=== PATIENT | male | born 1985 | race Caucasian/White ===

== ENCOUNTER 2020-04-26 21:03 | Emergency (ER) | payer OTHER, SELFPAY ==
[2020-04-26 21:27] VITALS: BP 138/81; PULSE 120; RESP 16; TEMP 36.6; O2SAT 98; BMI 24.0
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
[2020-04-26] MEDS: Lidocaine HCl 2 % MPF 5 ML VIAL INFILTRATI (22:33)
== END 2020-04-26 23:35 | disposition home or self-care (01) ==
PROVIDERS: Emergency Provider Internal Medicine; PCP Internal Medicine
DX: S01.511A Laceration without foreign body of lip, initial encounter (principal); W50.0XXA Accidental hit or strike by another person, initial encounter; Y93.9 Activity, unspecified; Y92.9 Unspecified place or not applicable; Y99.9 Unspecified external cause status
CPT/HCPCS: 12052; 99284

== ENCOUNTER 2020-10-30 18:50 | Emergency (ER) | payer OTHER, SELFPAY ==
[2020-10-30 19:09] VITALS: BP 170/96; PULSE 112; O2SAT 98
[2020-10-30 19:14] VITALS: BP 147/81; PULSE 94; RESP 20; TEMP 36.7; O2SAT 95; BMI 23.1
== END 2020-10-30 22:15 | disposition left against medical advice (07) ==
PROVIDERS: Emergency Provider Emergency Medicine
DX: F41.9 Anxiety disorder, unspecified (principal)
CPT/HCPCS: 99281; 99282

== ENCOUNTER 2020-12-24 14:46 | Outpatient (REF) | payer OTHER, SELFPAY | END 2020-12-24 14:47 | disposition home or self-care (01) | LOC: HO.LAB 14:46 | PROVIDERS: PCP Internal Medicine; Visit Provider Internal Medicine | DX: Z20.822 Contact with and (suspected) exposure to COVID-19 (principal) | CPT/HCPCS: C9803; U0003; U0005 ==

== ENCOUNTER 2021-08-20 12:03 | Emergency (ER) | payer OTHER, SELFPAY ==
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
[2021-08-20 14:03] VITALS: BP 142/92; PULSE 70; RESP 18; TEMP 36.4; O2SAT 100; BMI 24.0
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
[2021-08-20 15:32] VITALS: BP 141/85; PULSE 62; RESP 16; TEMP 36.9; O2SAT 98
--- NOTE | 2021-08-20 15:39 | PC.NURSE ---
PATIENT REFUSED BLOOD WORK ,RN AWARE .
[2021-08-20] MEDS: Acetaminophen 325 MG TABLET 975 MG PO (15:50)
[2021-08-20] MEDS: ALPRAZolam 0.5 MG TABLET PO (15:50)
[2021-08-20 16:08] LABS: MANUAL DIFF FLAG NO
[2021-08-20 16:15] LABS: Basophils Percent Auto 0.3 % (0-2); Eosinophils Absolute Auto 0.1 X10*3/uL (0.0-0.4); Eosinophils Percent Auto 1.2 % (0-4); Hematocrit 47.7 % (42.0-52.0); Hemoglobin 15.4 g/dl (14.0-18.0); Imm Gran Abs Auto 0.02 X10*3/uL (0.00-0.03); Imm Gran Pct Auto 0.2 % (0.0-0.4); Lymphocytes Absolute Auto 1.5 X10*3/uL (1.2-4.9); Lymphocytes Percent Auto 14.4 % (20-40); Mean Corpuscular HGB Conc 32.3 g/dl (31.0-36.0); Mean Corpuscular Hemoglobin 27.4 pg (27.0-33.0); Mean Corpuscular Volume 84.7 fL (80.0-98.0); Mean Platelet Volume 11.7 fL (9.4-12.4); Monocytes Percent Auto 9.6 % (2-11); Neutrophils Absolute Auto 7.9 x10*3/uL (2.0-8.3); Neutrophils Percent Auto 74.3 % (45-73); Platelet Count 161 X10*3/uL (160-400); Red Blood Count 5.63 X10*6/uL (4.60-5.80); Red Cell Distribution Width 13.6 % (11.0-16.0); White Blood Count 10.7 X10*3/uL (4.8-10.8)
[2021-08-20 16:20] LABS: INTERNATIONAL NORM RATIO 0.9 (0.9-1.1); Prothrombin Time 10.5 SEC (9.9-13.0)
[2021-08-20 16:23] LABS: Partial Thromboplastin Time 35.9 SEC (24.1-38.0)
[2021-08-20 16:28] LABS: Alanine Aminotransferase 21 U/L (0-40); Albumin Level 4.6 g/dL (3.5-5.0); Alkaline Phosphatase 94 U/L (39-117); Anion Gap 14 (12-20); Aspartate Amino Transferase 18 U/L (5-37); Bilirubin Direct 0.3 mg/dL (0.0-0.5); Bilirubin Total 0.9 mg/dL (0.0-1.0); Blood Urea Nitrogen 9 mg/dL (9-16); Calcium 9.9 mg/dL (8.4-10.2); Carbon Dioxide 25 mmol/L (22-29); Chloride 106 mmol/L (96-108); Creatinine Clr Calc Pharmacy 102.5; Estimated Glomerular Filt Rate > 60; Glucose Random 90 mg/dL (60-115); Potassium 4.7 mmol/L (3.3-5.1); Sodium 140 mmol/L (135-145); Total Protein 7.8 g/dL (6.5-8.0)
[2021-08-20] MEDS: iohexoL 350 MG/ML 100 ML INFUS..BTL IV (17:08)
[2021-08-20 18:00] VITALS: BP 134/92; PULSE 69; RESP 16; TEMP 37.1; O2SAT 98
== END 2021-08-20 18:51 | disposition home or self-care (01) ==
PROVIDERS: Physician Assistant; Emergency Provider Emergency Medicine; PCP Internal Medicine
DX: S43.401A Unspecified sprain of right shoulder joint, initial encounter (principal); S20.02XA Contusion of left breast, initial encounter; S20.01XA Contusion of right breast, initial encounter; V43.62XA Car passenger injured in collision with other type car in traffic accident, initial encounter; Y93.9 Activity, unspecified; Y92.410 Unspecified street and highway as the place of occurrence of the external cause; Y99.9 Unspecified external cause status; R10.30 Lower abdominal pain, unspecified; M54.2 Cervicalgia; G44.309 Post-traumatic headache, unspecified, not intractable; F17.210 Nicotine dependence, cigarettes, uncomplicated; Z71.6 Tobacco abuse counseling; Z79.899 Other long term (current) drug therapy
CPT/HCPCS: 36415; 36556; 70450; 71045; 71260; 72125; 73030; 74177; 80048; 80076; 85025; 85610; 85730; 99284; Q9967

== ENCOUNTER → 2021-09-12 14:23 | Outpatient (BNVA) | payer OTHER, SELFPAY | PROVIDERS: PCP Internal Medicine; Visit Provider Physician Assistant | DX: S40.011A Contusion of right shoulder, initial encounter (principal) | CPT/HCPCS: 99202 ==

== ENCOUNTER 2022-09-26 05:47 | Emergency (ER) | payer OTHER, SELFPAY ==
[2022-09-26 06:05] VITALS: BP 120/78; PULSE 119; RESP 20; TEMP 37; O2SAT 100; BMI 24.0
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
--- NOTE | 2022-09-26 07:40 | PC.NURSE ---
pt not found at bedside at this time
== END 2022-09-26 07:40 | disposition left against medical advice (07) ==
PROVIDERS: Emergency Provider Emergency Medicine Emergency Medical Services; PCP Internal Medicine
DX: S00.83XA Contusion of other part of head, initial encounter (principal); S01.411A Laceration without foreign body of right cheek and temporomandibular area, initial encounter; Y04.8XXA Assault by other bodily force, initial encounter; Y93.55 Activity, bike riding; Y92.414 Local residential or business street as the place of occurrence of the external cause; Y99.9 Unspecified external cause status; Z79.899 Other long term (current) drug therapy
CPT/HCPCS: 99282; 99284

== ENCOUNTER 2022-11-28 00:39 | Emergency (ER) | payer OTHER, SELFPAY ==
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
[2022-11-28 00:50] VITALS: BP 143/97; PULSE 114; RESP 20; TEMP 36.6; O2SAT 97; BMI 24.0
[2022-11-28 03:34] VITALS: BP 150/79; PULSE 98; RESP 18; TEMP 36.8; O2SAT 98
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
== END 2022-11-28 04:29 | disposition left against medical advice (07) ==
PROVIDERS: Emergency Provider Emergency Medicine
DX: S01.511A Laceration without foreign body of lip, initial encounter (principal); S01.112A Laceration without foreign body of left eyelid and periocular area, initial encounter; S01.21XA Laceration without foreign body of nose, initial encounter; Y04.0XXA Assault by unarmed brawl or fight, initial encounter; Y93.9 Activity, unspecified; Y92.9 Unspecified place or not applicable; Y99.9 Unspecified external cause status
CPT/HCPCS: 70450; 70486; 72125; 99283

== ENCOUNTER 2023-07-09 22:19 | Emergency (ER) | payer OTHER, SELFPAY ==
[2023-07-09 22:25] VITALS: BP 170/102; PULSE 137; O2SAT 96
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
[2023-07-09 22:30] VITALS: BP 145/91; PULSE 129; RESP 16; TEMP 37.1; O2SAT 96; BMI 23.8
[2023-07-09] MEDS: LORazepam 1 MG TABLET 2 MG PO (23:09)
== END 2023-07-09 23:32 | disposition home or self-care (01) ==
PROVIDERS: Emergency Provider Internal Medicine
DX: F10.129 Alcohol abuse with intoxication, unspecified (principal)
CPT/HCPCS: 99283; 99284

== ENCOUNTER 2023-07-12 05:57 | Emergency (ER) | payer OTHER, SELFPAY ==
[2023-07-12 06:20] VITALS: BP 160/90; PULSE 120; O2SAT 97
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
[2023-07-12 06:47] VITALS: BP 163/89; PULSE 116; RESP 16; O2SAT 96; BMI 25.6
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
== END 2023-07-12 07:45 | disposition home or self-care (01) ==
PROVIDERS: Emergency Provider Emergency Medicine
DX: F33.9 Major depressive disorder, recurrent, unspecified (principal); F43.10 Post-traumatic stress disorder, unspecified; F41.9 Anxiety disorder, unspecified; F10.10 Alcohol abuse, uncomplicated
CPT/HCPCS: 99282

== ENCOUNTER 2023-11-04 03:24 | Emergency (ER) | payer OTHER, SELFPAY ==
[2023-11-04 07:37] LABS: MANUAL DIFF FLAG NO
[2023-11-04 07:39] LABS: Basophils Percent Auto 0.4 % (0-2); Eosinophils Absolute Auto 0.1 X10*3/uL (0.0-0.4); Eosinophils Percent Auto 0.7 % (0-4); Hematocrit 41.3 % (42.0-52.0); Imm Gran Abs Auto 0.03 X10*3/uL (0.00-0.03); Imm Gran Pct Auto 0.4 % (0.0-0.4); Lymphocytes Absolute Auto 3.5 X10*3/uL (1.2-4.9); Lymphocytes Percent Auto 42.3 % (20-40); Mean Corpuscular HGB Conc 33.9 g/dl (31.0-36.0); Mean Corpuscular Hemoglobin 27.2 pg (27.0-33.0); Mean Corpuscular Volume 80.4 fL (80.0-98.0); Mean Platelet Volume 10.8 fL (9.4-12.4); Monocytes Absolute Auto 0.4 X10*3/uL (0.1-1.2); Neutrophils Absolute Auto 4.3 x10*3/uL (2.0-8.3); Neutrophils Percent Auto 51.2 % (45-73); Platelet Count 217 X10*3/uL (160-400); Red Blood Count 5.14 X10*6/uL (4.60-5.80); Red Cell Distribution Width 12.6 % (11.0-16.0); White Blood Count 8.3 X10*3/uL (4.8-10.8)
[2023-11-04 08:00] VITALS: BP 104/68; PULSE 70; RESP 20; TEMP 36.6; O2SAT 96
[2023-11-04 08:19] LABS: Alanine Aminotransferase 19 U/L (0-40); Albumin Level 4.8 g/dL (3.5-5.0); Alkaline Phosphatase 90 U/L (39-117); Amphetamine Screen Urine Not Detected (Not Detect); Anion Gap 18 (12-20); Aspartate Amino Transferase 25 U/L (5-37); Barbiturates, Urine Not Detected (Not Detect); Benzodiazepines Screen Urine Not Detected (Not Detect); Bilirubin Direct 0.2 mg/dL (0.0-0.5); Bilirubin Total 0.6 mg/dL (0.0-1.0); Blood Urea Nitrogen 9 mg/dL (9-16); Buprenorphine Scr Not Detected (Not Detect); Calcium 9.2 mg/dL (8.4-10.2); Cannabinoid Screen Urine POSITIVE (Not Detect); Carbon Dioxide 21 mmol/L (22-29); Chloride 110 mmol/L (96-108); Cocaine Screen Urine POSITIVE (Not Detect); Estimated Glomerular Filt Rate > 60; Ethanol 291 mg/dL; Fentanyl, urine Not Detected (Not Detect); Glucose Random 102 mg/dL (60-115); Opiate Screen Urine Not Detected (Not Detect); Oxycodone Screen Urine Not Detected (Not Detect); Phencyclidine Screen Urine Not Detected (Not Detect); Potassium 3.5 mmol/L (3.3-5.1); Sodium 145 mmol/L (135-145); Total Protein 7.9 g/dL (6.5-8.0)
[2023-11-04 08:36] LABS: Methadone Screen, Urine Not Detected (Not Detect)
--- NOTE | 2023-11-04 13:24 | PC.NURSE ---
patient awake at this time, met with the care team. mother at bedside at this time.
[2023-11-04 14:34] VITALS: BP 115/60; PULSE 74; RESP 14; TEMP 36.8; O2SAT 95
== END 2023-11-04 14:56 | disposition home or self-care (01) ==
PROVIDERS: Emergency Provider Emergency Medicine
DX: F10.120 Alcohol abuse with intoxication, uncomplicated (principal); Y90.8 Blood alcohol level of 240 mg/100 ml or more; F14.10 Cocaine abuse, uncomplicated; R45.850 Homicidal ideations; R45.6 Violent behavior; F43.10 Post-traumatic stress disorder, unspecified; F32.5 Major depressive disorder, single episode, in full remission; F41.9 Anxiety disorder, unspecified; J45.909 Unspecified asthma, uncomplicated; F17.210 Nicotine dependence, cigarettes, uncomplicated; F12.90 Cannabis use, unspecified, uncomplicated
CPT/HCPCS: 80053; 80307; 82248; 85025; 99283; 99285; S9485

== ENCOUNTER 2023-11-11 22:55 | Emergency (ER) | payer OTHER, SELFPAY ==
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
[2023-11-11 23:00] VITALS: BP 138/74; PULSE 90; O2SAT 99; BMI 24.1
[2023-11-11 23:06] VITALS: BP 130/87; PULSE 89; RESP 17; TEMP 36.1
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
[2023-11-12 01:16] VITALS: BP 126/82; PULSE 92; RESP 18; TEMP 36.6; O2SAT 97
[2023-11-12] MEDS: Ibuprofen 600 MG TABLET PO (01:28)
[2023-11-12 01:44] VITALS: BP 126/82; PULSE 92; RESP 18; TEMP 36.6; O2SAT 97
== END 2023-11-12 01:45 | disposition home or self-care (01) ==
PROVIDERS: Emergency Provider Internal Medicine
DX: S22.42XA Multiple fractures of ribs, left side, initial encounter for closed fracture (principal); R51.9 Headache, unspecified; M54.2 Cervicalgia; R07.89 Other chest pain; F12.90 Cannabis use, unspecified, uncomplicated; V47.5XXA Car driver injured in collision with fixed or stationary object in traffic accident, initial encounter; Y93.9 Activity, unspecified; Y92.410 Unspecified street and highway as the place of occurrence of the external cause; Y99.8 Other external cause status; Z79.899 Other long term (current) drug therapy
CPT/HCPCS: 70450; 71045; 72125; 99284

== ENCOUNTER 2023-11-16 18:30 | Emergency (ER) | payer OTHER, SELFPAY ==
[2023-11-16 18:35] VITALS: BP 130/70; BP 147/76; PULSE 124; PULSE 133; RESP 20; TEMP 37; O2SAT 95; BMI 24.4
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
[2023-11-16 19:50] VITALS: BP 147/76; PULSE 124; RESP 20; TEMP 37; O2SAT 95
== END 2023-11-16 19:51 | disposition left against medical advice (07) ==
PROVIDERS: Emergency Provider Emergency Medicine; PCP Internal Medicine
DX: S01.511A Laceration without foreign body of lip, initial encounter (principal); S11.91XA Laceration without foreign body of unspecified part of neck, initial encounter; X99.9XXA Assault by unspecified sharp object, initial encounter; Y93.89 Activity, other specified; Y92.9 Unspecified place or not applicable; Y99.9 Unspecified external cause status
CPT/HCPCS: 12001; 12011; 99282; 99284

== ENCOUNTER 2023-12-07 14:27 | Outpatient (AMB) | payer OTHER, SELFPAY ==
[2023-12-07 14:38] VITALS: BP 122/74; PULSE 76; O2SAT 98; BMI 24.9
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
== END 2023-12-07 15:25 | disposition home or self-care (01) ==
PROVIDERS: PCP Internal Medicine; Visit Provider Internal Medicine
DX: S46.912A Strain of unspecified muscle, fascia and tendon at shoulder and upper arm level, left arm, initial encounter (principal); Z04.3 Encounter for examination and observation following other accident
CPT/HCPCS: 99213; G2211

== ENCOUNTER 2024-09-27 09:02 | Outpatient (REF) | payer OTHER, SELFPAY ==
[2024-09-27 09:22] LABS: MANUAL DIFF FLAG NO
[2024-09-27 09:51] LABS: Basophils Percent Auto 0.6 % (0-2); Eosinophils Absolute Auto 0.4 X10*3/uL (0.0-0.4); Eosinophils Percent Auto 5.4 % (0-4); Hematocrit 43.2 % (42.0-52.0); Hemoglobin 14.4 g/dl (14.0-18.0); Imm Gran Abs Auto 0.01 X10*3/uL (0.00-0.03); Imm Gran Pct Auto 0.1 % (0.0-0.4); Lymphocytes Absolute Auto 2.4 X10*3/uL (1.2-4.9); Lymphocytes Percent Auto 34.7 % (20-40); Mean Corpuscular HGB Conc 33.3 g/dl (31.0-36.0); Mean Corpuscular Hemoglobin 25.5 pg (27.0-33.0); Mean Corpuscular Volume 76.6 fL (80.0-98.0); Mean Platelet Volume 11.4 fL (9.4-12.4); Monocytes Absolute Auto 0.7 X10*3/uL (0.1-1.2); Neutrophils Absolute Auto 3.4 x10*3/uL (2.0-8.3); Neutrophils Percent Auto 49.2 % (45-73); Platelet Count 197 X10*3/uL (160-400); Red Blood Count 5.64 X10*6/uL (4.60-5.80); Red Cell Distribution Width 12.4 % (11.0-16.0); White Blood Count 6.9 X10*3/uL (4.8-10.8)
[2024-09-27 10:40] LABS: Amphetamine Screen Urine Not Detected (Not Detect); Barbiturates, Urine Not Detected (Not Detect); Benzodiazepines Screen Urine POSITIVE (Not Detect); Buprenorphine Scr Not Detected (Not Detect); Cannabinoid Screen Urine Not Detected (Not Detect); Cocaine Screen Urine Not Detected (Not Detect); Fentanyl, urine Not Detected (Not Detect); Methadone Screen, Urine Not Detected (Not Detect); Opiate Screen Urine Not Detected (Not Detect); Oxycodone Screen Urine Not Detected (Not Detect); Phencyclidine Screen Urine Not Detected (Not Detect)
[2024-09-27 12:21] LABS: Alanine Aminotransferase 29 U/L (0-40); Albumin Level 4.4 g/dL (3.5-5.0); Alkaline Phosphatase 99 U/L (39-117); Anion Gap 12 (12-20); Aspartate Amino Transferase 21 U/L (5-37); Bilirubin Total 0.8 mg/dL (0.0-1.0); Blood Urea Nitrogen 18 mg/dL (9-16); Calcium 9.2 mg/dL (8.4-10.2); Carbon Dioxide 26 mmol/L (22-29); Chloride 107 mmol/L (96-108); Cholesterol 209 mg/dL (<200); Estimated Glomerular Filt Rate > 60; Glucose Fasting 98 mg/dL (60-99); HDL Cholesterol 38 mg/dL (>40); LDL Cholesterol Calculated 150 mg/dL (<100); Potassium 4.7 mmol/L (3.3-5.1); Sodium 140 mmol/L (135-145); Thyroid Stimulating Hormone 0.89 uIU/mL (0.32-4.0); Total Protein 7.4 g/dL (6.5-8.0); Triglycerides 108 mg/dL (<150); Vitamin D 25-OH Total 23.6 ng/mL (>30)
== END 2024-09-27 09:03 | disposition home or self-care (01) ==
LOC: HO.LAB 09:02
PROVIDERS: PCP Internal Medicine; Visit Provider Psychiatry & Neurology Psychiatry
DX: Z79.899 Other long term (current) drug therapy (principal)
CPT/HCPCS: 80053; 80061; 80307; 82306; 84443; 85025

== ENCOUNTER 2025-02-28 11:04 | Outpatient (REF) | payer OTHER, SELFPAY ==
--- NOTE | ~2025-02-28 | XR_ITS ---
EXAMINATION: XR LUMBAR SPINE 2-3 VIEWS HISTORY: M54.50 - Low back pain, unspecified COMPARISON: There are no prior studies for comparison. FINDINGS: AP, lateral, and coned down views of the lumbar spine are submitted. Osseous mineralization is normal. Five nonrib-bearing lumbar vertebral bodies are identified, maintaining normal height and alignment without evidence of fracture or spondylolisthesis. The intervertebral disc spaces are preserved. The posterior elements are intact. The visualized paraspinal soft tissues are unremarkable. XR/XR lumbar spine 2-3V IMPRESSION: Unremarkable examination of the lumbar spine. Electronically signed by: Vinicius Terry MD 02/28/2025 12:24 PM EDT
--- NOTE | ~2025-02-28 | XR_ITS ---
EXAMINATION: XR WRIST 3 OR MORE VIEWS RIGHT HISTORY: M25.531 - Pain in right wrist COMPARISON: There are no prior studies available for comparison. FINDINGS: Four views of the right wrist including a scaphoid view are submitted. Osseous mineralization is normal. There is an exostosis off the distal ulnar diaphysis. There is no fracture or dislocation. The joint spaces are preserved. The soft tissues are unremarkable. XR/XR wrist RT min 3V IMPRESSION: Exostosis off the distal ulnar diaphysis. Otherwise unremarkable examination of the right wrist. Electronically signed by: Vinicius Terry MD 02/28/2025 12:23 PM EDT
--- NOTE | ~2025-02-28 | XR_ITS ---
EXAMINATION: XR SHOULDER, LEFT CLINICAL INFORMATION: M25.512 - Pain in left shoulder COMPARISON: None available. TECHNIQUE: Four views of the left shoulder. FINDINGS: Mild acromioclavicular arthritis. Glenohumeral joint space is maintained. No visible acute fracture or dislocation. No aggressive bony lesion. No abnormal soft tissue calcification. XR/XR shoulder LT min 2V IMPRESSION: Mild acromioclavicular arthritis Electronically signed by: Dave Mazariegos MD 02/28/2025 12:24 PM EDT
== END 2025-02-28 11:05 | disposition home or self-care (01) ==
LOC: HO.XRAY 11:04
PROVIDERS: PCP Internal Medicine; Visit Provider Internal Medicine
DX: M25.512 Pain in left shoulder (principal); M54.50 Low back pain, unspecified; M25.531 Pain in right wrist; Z79.899 Other long term (current) drug therapy
CPT/HCPCS: 72100; 73030; 73110; 96127; 99212

== ENCOUNTER 2025-02-28 11:04 | Outpatient (AMB) | payer OTHER, SELFPAY ==
[2025-02-28 11:14] VITALS: BP 140/86; PULSE 82; RESP 18; TEMP 36.3; O2SAT 97; BMI 29.2
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
== END 2025-02-28 11:35 | disposition home or self-care (01) ==
LOC: HO.HMCH 11:05
PROVIDERS: PCP Internal Medicine; Visit Provider Internal Medicine
DX: M54.50 Low back pain, unspecified (principal); M25.512 Pain in left shoulder; M25.531 Pain in right wrist

== ENCOUNTER 2025-04-26 10:49 | Outpatient (AMB) | payer OTHER, SELFPAY ==
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
[2025-04-26 11:33] VITALS: BP 138/80; PULSE 82; TEMP 36.4; O2SAT 96; BMI 29.2
== END 2025-04-26 12:04 | disposition home or self-care (01) ==
LOC: HO.HMCH 10:50
PROVIDERS: PCP Internal Medicine; Visit Provider Internal Medicine
DX: Z00.00 Encounter for general adult medical examination without abnormal findings (principal)

== ENCOUNTER → 2025-04-26 10:49 | Outpatient (BNVA) | payer OTHER, SELFPAY | PROVIDERS: PCP Internal Medicine; Visit Provider Internal Medicine | DX: Z00.00 Encounter for general adult medical examination without abnormal findings (principal); M54.9 Dorsalgia, unspecified; M25.531 Pain in right wrist; M25.512 Pain in left shoulder; E78.5 Hyperlipidemia, unspecified | CPT/HCPCS: 96127; 99395 ==